=== PATIENT | female | born 1935 | race Caucasian/White ===

== ENCOUNTER 2018-07-21 10:44 | Emergency (ER) | payer MEDICAID, MEDICARE ==
[~2018-07-21] VITALS: Ht 157.5 cm; Wt 61.4 kg
[2018-07-21] MEDS ORDERED: PRAV40TA2 PO (11:09)
[2018-07-21] MEDS ORDERED: MULTCAP PO (11:09)
[2018-07-21] MEDS ORDERED: VITA200016 PO (11:09)
[2018-07-21] MEDS ORDERED: ALBU0.63 NEB (11:09)
[2018-07-21] MEDS ORDERED: CELE1CAP9 PO (11:09)
[2018-07-21] MEDS ORDERED: TRAM50TA2 PO (11:09)
[2018-07-21] MEDS ORDERED: VITA500C24 PO (11:11)
[2018-07-21] MEDS ORDERED: SYMB16INH INH (11:11)
[2018-07-21] MEDS ORDERED: CYCL5TAB PO (11:11)
[2018-07-21] MEDS ORDERED: PROAAER10 INH (11:12)
[2018-07-21] MEDS ORDERED: methylPREDNISolone INJ 125 MG/2 ML VIAL (J2930) IV ONE (11:15)
[2018-07-21] MEDS: IPRATROPIUM 0.5MG/ALBUTEROL 2.5MG INH SOL UD 3ML (DUONEB)(J7620) NEB PRN ×3 (11:21→12:05)
[2018-07-21 11:24] LABS: BASO % 0.4 % (0.0-1.0); EOS # 0.1 10^3/uL (0.0-0.50); EOS % 0.8 % (0.0-3.0); HEMATOCRIT 49.7 % (36.0-47.0); HEMOGLOBIN 16.5 g/dl (12.0-15.5); LYMPH # 2.5 10^3/uL (1.5-4.5); LYMPH % 23.4 % (24.0-44.0); MEAN CORPUSCULAR HEMOGLOBIN 30.3 pg (27.0-33.0); MEAN CORPUSCULAR HGB CONC 33.2 g/dl (32.0-36.5); MEAN CORPUSCULAR VOLUME 91.4 fl (80.0-96.0); MONO # 0.8 10^3/uL (0.0-0.8); MONO % 7.4 % (0.0-5.0); NEUTROPHILS # 7.2 10^3/uL (1.8-7.7); NEUTROPHILS % 67.7 % (36.0-66.0); PLATELET COUNT, AUTOMATED 318 10^3/uL (150-450); RED BLOOD COUNT 5.44 10^6/uL (4.00-5.40); WHITE BLOOD COUNT 10.7 10^3/uL (4.0-10.0)
[2018-07-21 11:29] LABS: VENOUS BASE EXCESS 4.8 (-2.0-2.0); VENOUS HCO3 31.2 MEQ/L (23.0-27.0); VENOUS O2 SATURATION 47.7 % (60.0-80.0); VENOUS PARTIAL PRESSURE CO2 51.6 mmHg (38.0-50.0); VENOUS PARTIAL PRESSURE O2 26.2 mmHg (30.0-50.0); VENOUS PH 7.399 UNITS (7.330-7.430); VENOUS STANDARD HCO3 27.2 MEQ/L; VENOUS TOTAL CO2 32.8 MEQ/L (24.0-28.0)
[2018-07-21 11:51] LABS: ALBUMIN 4.1 GM/DL (3.2-5.2); ALT/SGPT 21 U/L (12-78); BILIRUBIN,DIRECT 0.2 MG/DL (0.0-0.2); BILIRUBIN,TOTAL 0.4 MG/DL (0.2-1.0); BLOOD UREA NITROGEN 12 MG/DL (7-18); CALCIUM LEVEL 10.4 MG/DL (8.8-10.2); CARBON DIOXIDE LEVEL 31 MEQ/L (21-32); CHLORIDE LEVEL 101 MEQ/L (98-107); CREATININE FOR GFR 0.58 MG/DL (0.55-1.30); GLOMERULAR FILTRATION RATE > 60.0 (>32); GLUCOSE, FASTING 119 MG/DL (70-100); LIPASE 91 U/L (73-393); POTASSIUM SERUM 4.2 MEQ/L (3.5-5.1); SODIUM LEVEL 140 MEQ/L (136-145); TOTAL PROTEIN 7.7 GM/DL (6.4-8.2)
[2018-07-21 11:52] LABS: INFLUENZA A AMPLIFICATION NEGATIVE (NEGATIVE); INFLUENZA B AMPLIFICATION NEGATIVE (NEGATIVE)
[2018-07-21 11:54] LABS: CPK CREATINE PHOSPHOKINASE 91 U/L (26-192); MB/CK RELATIVE INDEX 3.85 (< OR =4); TROPONIN I < 0.02 NG/ML (< 0.10)
[2018-07-21 12:29] VITALS: O2SAT 89
--- NOTE | 2018-07-21 12:42 | REP ---
CHEST PA/LATERAL: 07/21/2018. CLINICAL HISTORY: Dyspnea, cough. FINDINGS: There were no prior studies available. Lungs are well inflated, and the CP angles sharply defined without effusion. There is no lateral pleural thickening, apical scarring, or pneumothorax. Some underlying fibrotic changes are noted. There is no dense consolidation with air bronchograms. The aorta is calcified at the arch, tortuous but without aneurysm. Degenerative changes in the spine without compression deformity. No cardiomegaly or edema. Bony thoracic spine without acute compression deformity. Bones appear demineralized. No free air under the diaphragm. IMPRESSION: 1. Some underlying fibrosis and COPD without cardiomegaly, edema, effusion, or definite acute infiltrate. No dense consolidation or effusion. 2. Tortuous ectatic aorta without aneurysm. 3. No compression deformity in the spine. Bones are demineralized. Electronically Signed by Preet Macias MD 07/21/2018 06:57 P
[2018-07-21] MEDS ORDERED: PRED20TA PO (13:01)
[2018-07-21 13:09] VITALS: BP 137/69
--- NOTE | 2018-07-21 16:42 | ECGEPIP ---
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
== END 2018-07-21 13:20 | disposition home or self-care (01) ==
LOC: M ED 10:44
DX: J44.1 Chronic obstructive pulmonary disease with (acute) exacerbation (principal); Z72.0 Tobacco use; Q25.46 Tortuous aortic arch; Z79.899 Other long term (current) drug therapy; Z88.2 Allergy status to sulfonamides; Z88.8 Allergy status to other drugs, medicaments and biological substances
CPT/HCPCS: 71046; 80048; 80076; 82550; 82553; 82803; 83690; 84484; 85025; 87502; 93005; 93041; 94640; 96374; 99284; J2930

== ENCOUNTER → 2018-10-18 | Outpatient (CLI) | payer MEDICARE, MEDICAID ==
[~2018-10-18] MED LIST: ALBU0.63 NEB; CELE1CAP9 PO; CYCL5TAB PO; MULTCAP PO; PRAV40TA2 PO; PRED20TA PO; PROAAER10 INH; SYMB16INH INH; TRAM50TA2 PO; VITA200016 PO; VITA500C24 PO
[2018-10-18 18:00] LABS: FREE THYROXINE INDEX 2.9 % (1.3-4.8); RHEUMATOID FACTOR QUANT 21.5 IU/ML (<15.0); THYROID STIMULATING HORMONE 2.37 uIU/ML (0.358-3.740); THYROXINE (T4) 9.1 UG/DL (4.5-12.0)
[2018-10-22 00:06] LABS: H PYLORI SERUM QUANT IGA <9.0 units (0.0-8.9); H PYLORI SERUM QUANT IGM <9.0 units (0.0-8.9); H PYLORI SERUM QUANT IgG ABY 5.98 (0.00-0.79); SSA SJOGRENS A <0.2 AI (0.0-0.9); SSB SJOGRENS B <0.2 AI (0.0-0.9)
== END ==
LOC: M SMT 15:59
PROVIDERS: ATTEND Internal Medicine Pulmonary Disease
DX: J47.9 Bronchiectasis, uncomplicated (principal)

== ENCOUNTER 2018-11-11 19:52 | Inpatient (IN) | payer MEDICAID, MEDICARE ==
[~2018-11-11] VITALS: Ht 157.5 cm; Wt 57.2 kg
[2018-11-11 20:09] LABS: BASO # 0.1 10^3/uL (0.0-0.2); BASO % 0.3 % (0.0-1.0); EOS # 0.5 10^3/uL (0.0-0.50); EOS % 2.5 % (0.0-3.0); HEMATOCRIT 52.5 % (36.0-47.0); HEMOGLOBIN 16.9 g/dl (12.0-15.5); LYMPH # 3.9 10^3/uL (1.5-4.5); LYMPH % 20.8 % (24.0-44.0); MEAN CORPUSCULAR HEMOGLOBIN 30.2 pg (27.0-33.0); MEAN CORPUSCULAR HGB CONC 32.2 g/dl (32.0-36.5); MEAN CORPUSCULAR VOLUME 93.9 fl (80.0-96.0); MONO # 1.9 10^3/uL (0.0-0.8); MONO % 10.2 % (0.0-5.0); NEUTROPHILS # 12.3 10^3/uL (1.8-7.7); NEUTROPHILS % 65.9 % (36.0-66.0); PLATELET COUNT, AUTOMATED 389 10^3/uL (150-450); RED BLOOD COUNT 5.59 10^6/uL (4.00-5.40); WHITE BLOOD COUNT 18.7 10^3/uL (4.0-10.0)
[2018-11-11 20:11] LABS: ABG BASE EXCESS 2.8 (-2.0-2.0); ABG HCO3 28.5 MEQ/L (22.0-26.0); ABG O2 SATURATION 99.9 % (95.0-99.0); ABG PARTIAL PRESSURE CO2 47.3 mmHg (35.0-45.0); ABG PARTIAL PRESSURE O2 385.6 mmHg (75.0-100.0); ABG pH (ARTERIAL) 7.398 UNITS (7.350-7.450)
[2018-11-11] MEDS ORDERED: MORPHINE 2 MG/ML 1ML SYRINGE (J2270) IV ONE (20:15)
[2018-11-11] MEDS ORDERED: dexameTHASONE 4 MG/ML 1ML VIAL (J1100) IV ONE (20:15)
[2018-11-11 20:24] LABS: INR 0.9; PROTHROMBIN TIME 12.2 SECONDS (12.1-14.4)
[2018-11-11 20:25] LABS: PARTIAL THROMBOPLASTIN TIME 30.5 SECONDS (25.4-37.6)
[2018-11-11] MEDS ORDERED: BUSP10TA PO ×3 (20:33→23:34)
[2018-11-11 20:44] LABS: BLOOD UREA NITROGEN 17 MG/DL (7-18); CALCIUM LEVEL 9.6 MG/DL (8.8-10.2); CARBON DIOXIDE LEVEL 34 MEQ/L (21-32); CHLORIDE LEVEL 98 MEQ/L (98-107); CK-MB VALUE MASS 6.6 NG/ML (<3.6); CPK CREATINE PHOSPHOKINASE 134 U/L (26-192); CREATININE FOR GFR 0.84 MG/DL (0.55-1.30); GLOMERULAR FILTRATION RATE > 60.0 (>32); GLUCOSE, FASTING 160 MG/DL (70-100); MB/CK RELATIVE INDEX 4.93 (< OR =4); NT-PRO BNP 124 PG/ML (<450); POTASSIUM SERUM 4.2 MEQ/L (3.5-5.1); SODIUM LEVEL 139 MEQ/L (136-145); TROPONIN I < 0.02 NG/ML (< 0.10)
[2018-11-11] MEDS ORDERED: IPRATROPIUM 0.5MG/ALBUTEROL 2.5MG INH SOL UD 3ML (DUONEB)(J7620) NEB ONE (21:00)
[2018-11-11] MEDS ORDERED: ISOVUE-370 76% 100ML VIAL (Q9967) As Ordered ONE (21:38)
[2018-11-11] MEDS ORDERED: LORazepam 2 MG/ML VIAL (J2060) IV STA (22:18)
[2018-11-11 22:51] LABS: ABG BASE EXCESS 5.6 (-2.0-2.0); ABG HCO3 30.2 MEQ/L (22.0-26.0); ABG O2 SATURATION 86.5 % (95.0-99.0); ABG PARTIAL PRESSURE CO2 43.7 mmHg (35.0-45.0); ABG PARTIAL PRESSURE O2 50.6 mmHg (75.0-100.0); ABG STANDARD HCO3 29.2 MEQ/L (22.0-26.0); ABG TOTAL CO2 31.6 MEQ/L (23.0-31.0); ABG pH (ARTERIAL) 7.458 UNITS (7.350-7.450)
[2018-11-11] MEDS ORDERED: SYMB16INH INH (23:34)
[2018-11-11] MEDS ORDERED: ALBU83IN INH (23:34)
[2018-11-11] MEDS ORDERED: ASCO100013 PO (23:34)
[2018-11-11] MEDS ORDERED: PROAAER10 INH (23:34)
[2018-11-11] MEDS ORDERED: D3 22000 PO (23:42)
[2018-11-11] MEDS ORDERED: TUMS500C PO (23:42)
[2018-11-11] MEDS ORDERED: AMLO2.5T3 PO (23:42)
[2018-11-11] MEDS ORDERED: VITA100018 PO (23:42)
[2018-11-11] MEDS ORDERED: RANI150T PO (23:42)
[2018-11-11] MEDS ORDERED: TRAM50TA2 PO ×2 (23:42)
[2018-11-11] MEDS ORDERED: LISI-1046 PO (23:42)
[2018-11-11] MEDS ORDERED: CALCTAB17 PO (23:42)
[2018-11-11] MEDS ORDERED: ACET20VL INH (23:46)
[2018-11-12] MEDS ORDERED: ACETAMINOPHEN TAB 650MG DOSE (2X325MG) PO PRN (02:30)
--- NOTE | 2018-11-12 02:43 | HPEPDOC ---
[facility] Medical History & Physical Date of Admission Nov 12, 2018 Date of Service: Nov 12, 2018 History and Physical CHIEF COMPLAINT: SOB HISTORY OF PRESENT ILLNESS: Patient 82-year-old female with past medical history of COPD, anxiety, chronic pain and osteoarthritis presents to ER with complaints of worsening shortness of breath. Patient reportedly has had worsening symptoms since May and lead her to develop anxiety attacks to worsen her breathing status. Stated that she desats down into the 80s home at night. Recently was on prednisone for bronchitis treatment. Upon ER arrival, patient was noted to be hypoxic with severe respiratory distress with sat at 84%. She also reports loss of appetite, nausea, hot flashes and multiple symptoms recently. Reports feeling better at this time and no other complaints. PAST MEDICAL HISTORY: Refer to [facility] PAST SURGICAL HISTORY: Hysterectomy Carpal tunnel surgery 3 SOCIAL HISTORY: Denies tobacco, alcohol or illicit drug use. FAMILY HISTORY: None reported ALLERGIES: Please see below. REVIEW OF SYSTEMS: 10 point review of system negative except as stated in HPI HOME MEDICATIONS: Please see below. PHYSICAL EXAMINATION: General: No acute distress, Alert Eyes: Normal sclera, EOMI, SACHIN HENT: Atraumatic, neck supple, moist mucous membranes Cardiovascular: Normal rate, normal rhythm. Pulmonary: Diffuse b/l wheezing. GI: Soft, nontender, nondistended Skin: Warm and dry Neuro: CN grossly intact. No focal deficits. Strengths equal b/l. Psych: oriented x 3 LABORATORY DATA: See below. IMAGING: CXR- Pending read. MICROBIOLOGY: Please see below. ASSESSMENT AND PLAN: 1. COPD exacerbation - with desaturations down to 80s. - ABG noted for metabolic alkalosis. - Will c/w nebs, steroids at this time. - O2 support as needed. May need to be assess for home O2 prior to discharge. - Anxiety may play a role in exacerbations. 2. Severe anxiety - Will likely need Psych evaluation, at least as outpatient. - On Buspar currently. C/w home med. 3. OA - Resume home meds. DVT ppx: Lovenox and SCD Code status: Full code Vital Signs Vital Signs Date Time Temp Pulse Resp B/P (MAP) Pulse Ox O2 Delivery O2 Flow Rate FiO2 11/12/18 02:15 87 126/65 (85) 97 Nasal Cannula 3.0 11/12/18 00:30 99.4 24 Laboratory Data Labs 24H Laboratory Tests 2 11/11/18 19:55: Immature Granulocyte % (Auto) 0.3, White Blood Count 18.7H, Red Blood Count 5.5 9H, Hemoglobin 16.9H, Hematocrit 52.5H, Mean Corpuscular Volume 93.9, Mean Corpuscular Hemoglobin 30.2, Mean Corpuscular Hemoglobin Concent 32.2, Red Cell Distribution Width 12.8, Platelet Count 389, Neutrophils (%) (Auto) 65.9, Lymphocytes (%) (Auto) 20.8L, Monocytes (%) (Auto) 10.2H, Eosinophils (%) (Auto) 2.5, Basophils (%) (Auto) 0.3, Neutrophils # (Auto) 12.3H, Lymphocytes # (Auto) 3.9, Monocytes # (Auto) 1.9H, Eosinophils # (Auto) 0.5, Basophils # (Auto) 0.1, Nucleated Red Blood Cells % (auto) 0.0, Prothrombin Time 12.2, Prothromb Time International Ratio 0.90, Activated Partial Thromboplast Time 30.5, Anion Gap 7L, Glomerular Filtration Rate > 60.0, Blood Urea Nitrogen 17, Creatinine 0.84, Sodium Level 139, Potassium Level 4.2, Chloride Level 98, Carbon Dioxide Level 34H, Calcium Level 9.6, Total Creatine Kinase 134, Creatine Kinase MB 6.6H, Creatine Kinase MB Relative Index 4.93H, Troponin I < 0.02, QP-Dyz-N-Type Natriuretic Peptide 124 11/11/18 20:05: Blood Gas Bicarbonate Standard 27.0H, Arterial Blood pH 7.398, Arterial Blood Partial Pressure CO2 47.3H, Arterial Blood Partial Pressure O2 385.6H, Arterial Blood Total CO2 30.0, Arterial Blood HCO3 28.5H, Arterial Blood Base Excess 2.8H, Arterial Blood Oxygen Saturation 99.9H 11/11/18 22:40: Blood Gas Bicarbonate Standard 29.2H, Arterial Blood pH 7.458H, Arterial Blood Partial Pressure CO2 43.7, Arterial Blood Partial Pressure O2 50.6L, Arterial Blood Total CO2 31.6H, Arterial Blood HCO3 30.2H, Arterial Blood Base Excess 5.6H, Arterial Blood Oxygen Saturation 86.5L CBC/BMP Laboratory Tests 11/11/18 19:55 Red Blood Count 5.59 H, Mean Corpuscular Volume 93.9, Mean Corpuscular Hemoglobin 30.2, Mean Corpuscular Hemoglobin Concent 32.2, Red Cell Distribution Width 12.8, Neutrophils (%) (Auto) 65.9, Lymphocytes (%) (Auto) 20.8 L, Monocytes (%) (Auto) 10.2 H, Eosinophils (%) (Auto) 2.5, Basophils (%) (Auto) 0.3, Neutrophils # (Auto) 12.3 H, Lymphocytes # (Auto) 3.9, Monocytes # (Auto) 1.9 H, Eosinophils # (Auto) 0.5, Basophils # (Auto) 0.1, Calcium Level 9.6, Total Creatine Kinase 134 Home Medications Scheduled Acetylcysteine (Acetylcysteine) 200 Mg/1 Ml Vial, 2 ML INH DAILY MIXES WITH ALBUTEROL IN THE MORNING Amlodipine Besylate (Amlodipine Besylate) 2.5 Mg Tablet, 2.5 MG PO DAILY Ascorbic Acid (Vitamin C) 1,000 Mg Tablet, 1,000 MG PO DAILY Budesonide/Formoterol (Symbicort 160-4.5 Mcg Inhaler) 6 Gm Hfa.aer.ad, 2 PUFF IN H BID Buspirone HCl (Buspirone HCl) 10 Mg Tablet, 20 MG PO DAILY Buspirone HCl (Buspirone HCl) 10 Mg Tablet, 10 MG PO BID AFTERNOON AND QHS Calcium/Magnesium/Zinc (Qhaqbfm-Btoztjdvr-Ibok Tablet) 1 Each Tablet, 1 TAB PO TID Cholecalciferol (Vitamin D3) (Vitamin D3) 2,000 Unit Tablet, 2,000 UNIT PO DAILY Cyanocobalamin (Vitamin B-12) (Vitamin B-12) 1,000 Mcg Tablet, 1,000 MCG PO DAILY Lisinopril (Lisinopril) 2.5 Mg Tablet, 2.5 MG PO DAILY Pravastatin Sodium (Pravastatin Sodium) 40 Mg Tab, 40 MG PO QPM AFTER DINNER Ranitidine HCl (Ranitidine HCl) 150 Mg Tablet, 1 TAB PO BID Tramadol HCl (Tramadol HCl) 50 Mg Tablet, 100 MG PO DAILY Scheduled PRN Albuterol Sulf (Albuterol Sulfate) 2.5 Mg/3 Ml Vial.neb, 2.5 MG INH Q6H PRN for SHORTNESS OF BREATH Albuterol Sulfate (Proair Hfa) 8.5 Gm Hfa.aer.ad, 2 PUFF INH Q4H PRN for SHOR TNESS OF BREATH Calcium Carbonate (Tums) 200 Mg Tab.chew, 1,500 MG PO QID PRN for HEARTBURN/INDIGESTION Tramadol HCl (Tramadol HCl) 50 Mg Tablet, 50 MG PO BID PRN for PAIN Allergies Coded Allergies: Sulfa (Sulfonamide Antibiotics) (Verified Allergy, Unknown, 11/11/18) aspirin (Verified Allergy, Unknown, 11/11/18) A-FIB/CHADSVASC A-FIB History Current/History of A-Fib/PAF?: No VITOR ZUNIGA MD Nov 12, 2018 02:43
[2018-11-12] MEDS ORDERED: IPRATROPIUM 0.5MG/ALBUTEROL 2.5MG INH SOL UD 3ML (DUONEB)(J7620) NEB PRN (02:45)
[2018-11-12] MEDS ORDERED: NS 1,000 ML IV SCH (02:45)
[2018-11-12] MEDS ORDERED: CALCIUM CARBONATE 500 MG CHEW U/D PO PRN (02:45)
[2018-11-12] MEDS: traMADol 50 MG TAB PO PRN ×2 (03:08→18:42)
[2018-11-12 04:00] VITALS: BP 155/80
[2018-11-12] MEDS ORDERED: traMADol 50 MG TAB PO ONE (04:00)
[2018-11-12 05:53] LABS: HEMOGLOBIN 15.6 g/dl (12.0-15.5); MEAN CORPUSCULAR HEMOGLOBIN 29.5 pg (27.0-33.0); MEAN CORPUSCULAR HGB CONC 33.2 g/dl (32.0-36.5); PLATELET COUNT, AUTOMATED 343 10^3/uL (150-450); RED BLOOD COUNT 5.28 10^6/uL (4.00-5.40); WHITE BLOOD COUNT 7.9 10^3/uL (4.0-10.0)
[2018-11-12] MEDS ORDERED: AZITHROMYCIN INJ 500 MG, VIAL MATE ADAPTER 1 EACH in D5W 250 ML IV SCH (06:00)
[2018-11-12 06:06] LABS: BLOOD UREA NITROGEN 15 MG/DL (7-18); CALCIUM LEVEL 9.1 MG/DL (8.8-10.2); CARBON DIOXIDE LEVEL 31 MEQ/L (21-32); CHLORIDE LEVEL 101 MEQ/L (98-107); CREATININE FOR GFR 0.65 MG/DL (0.55-1.30); GLOMERULAR FILTRATION RATE > 60.0 (>32); GLUCOSE, FASTING 151 MG/DL (70-100); POTASSIUM SERUM 4.4 MEQ/L (3.5-5.1); SODIUM LEVEL 136 MEQ/L (136-145)
[2018-11-12] MEDS: SYMBICORT 160/4.5MCG INHALER 6GM INH SCH ×2 (07:19→20:02)
[2018-11-12] MEDS: IPRATROPIUM 0.5MG/ALBUTEROL 2.5MG INH SOL UD 3ML (DUONEB)(J7620) NEB SCH ×3 (07:20→20:00)
[2018-11-12 08:00] VITALS: BP 131/61
--- NOTE | 2018-11-12 08:16 | ECGEPIP ---
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
--- NOTE | 2018-11-12 08:41 | REP ---
PORTABLE CHEST: Single AP portable view of the chest is performed and compared to prior study of 07/21/2018. There is stable mild fibrotic change in each lung base with no evidence of acute infiltrate. Heart does not appear to be significantly enlarged. There is calcification and tortuosity of the thoracic aorta. The mediastinal silhouette is unchanged. IMPRESSION: Stable chronic findings without evidence of acute infiltrate. Electronically Signed by Yunier Yousif MD 11/12/2018 12:44 P
[2018-11-12] MEDS: CYANOCOBALAMIN 500 MCG TAB PO SCH (08:58)
[2018-11-12] MEDS: ESCITALOPRAM OXALATE 10 MG TAB (LEXAPRO) PO SCH (08:58)
[2018-11-12] MEDS: hydrOXYzine 25 MG TAB PO PRN ×2 (08:59→14:58)
[2018-11-12] MEDS: LISINOPRIL *2.5 MG* TAB PO SCH (08:59)
[2018-11-12] MEDS: busPIRone 10 MG TAB PO SCH ×2 (08:59→21:38)
[2018-11-12] MEDS: FAMOTIDINE 20 MG TAB PO SCH ×2 (08:59→21:38)
[2018-11-12] MEDS: ENOXAPARIN 40 MG/0.4 ML SYRINGE (J1650) SC SCH (09:00)
[2018-11-12] MEDS: methylPREDNISolone INJ 40 MG/1 ML VIAL (J2920) IV SCH ×2 (09:00→16:40)
[2018-11-12] MEDS: DOXYCYCLINE HYCLATE 100 MG in D5W MINI-BAG PLUS 100 ML IV SCH ×2 (09:30→21:39)
--- NOTE | 2018-11-12 10:20 | IPNPDOC ---
Text Note Date of Service The patient was seen on 11/12/18. NOTE Subjective: Kinga is seen on morning rounds, she is sitting on the edge of her bed, she is rather anxious, complaining of chest pain worse with breathing, apparently this has been present for many months and her daughter who is at bedside states that she often gets this way when she gets anxious. She states it resolves when she is not anxious. The patient states she is SOB but she says it is because she is anxious right now, she denies cough, heart palpitations or abdominal discomfort or n/v. ROS: 12 point ROS negative except for above findings PHYSICAL EXAMINATION: General: She is in distress from her anxiety, she is on the side of her bed, she is very fidgety, she states she has chest pain that is worsened with breathing HEENT: Atraumatic, neck supple, moist mucous membranes, EOMI, no JVD Cardiovascular: normal s1 and s2., no murmurs, rubs or gallops appreciated Pulmonary: scattered wheezing throughout, no rales or rhonchi appreciated Abdomen: soft, nabsx4, nontender to palpation, no rebound rigidity or guarding, no hepatosplenomegaly or masses appreciated Skin: Warm and dry Neuro: No focal deficits. Psych: oriented x 3 but very anxious LABORATORY DATA: See below. MICROBIOLOGY: Please see below. ASSESSMENT AND PLAN: 1. COPD exacerbation - Has been about 93% on 4 L NC O2, - Will start Doxycycline; DC Azithromycin (re: possible prolongation of QTc) - c/w solumedrol 40 q8h for now will wean tomorrow - c/w Duonebs 2. Severe anxiety -she is anxious again on physical examination today, she can't tell me why, she is just anxious -will schedule her escitalopram beginning today -hydroxyzine to help w this, avoid Benzo's in light of respiratory complaints - Will likely need Psych evaluation, at least as outpatient. 3. OA - Resume home medication 4. Chest pain - likely related to anxiety, less likely 2/2 cardiac etiology - EKG reviewed in chart, no concerning signs for active or impending ischemia, no concerning ST-T wave changes - If it does not improve after anxiety has resolved, we can order troponin and repeat EKG, daughter states this is chronic for her and always resolves when anxiety abates 5. GERD - Will try GI cocktail x 1 - Tums and Pepcid 6. DLP - c/w pravastatin 7. HTN - c/w amlodipine and lisinopril DVT ppx: - c/w Lovenox and SCD VS,Fishbone, I+O VS, Fishbone, I+O Laboratory Tests 11/11/18 19:55 Red Blood Count 5.59 H, Mean Corpuscular Volume 93.9, Mean Corpuscular Hemoglobin 30.2, Mean Corpuscular Hemoglobin Concent 32.2, Red Cell Distribution Width 12.8, Neutrophils (%) (Auto) 65.9, Lymphocytes (%) (Auto) 20.8 L, Monocytes (%) (Auto) 10.2 H, Eosinophils (%) (Auto) 2.5, Basophils (%) (Auto) 0.3, Neutrophils # (Auto) 12.3 H, Lymphocytes # (Auto) 3.9, Monocytes # (Auto) 1.9 H, Eosinophils # (Auto) 0.5, Basophils # (Auto) 0.1, Calcium Level 9.6, Total Creatine Kinase 134 11/12/18 05:30 Red Blood Count 5.28, Mean Corpuscular Volume 89.0, Mean Corpuscular Hemoglobin 29.5, Mean Corpuscular Hemoglobin Concent 33.2, Red Cell Distribution Width 12.8, Calcium Level 9.1 Vital Signs Date Time Temp Pulse Resp B/P (MAP) Pulse Ox O2 Delivery O2 Flow Rate FiO2 11/12/18 08:58 131/61 11/12/18 08:00 97.8 82 20 93 3.0 11/12/18 03:57 Nasal Cannula I&O- Last 24 Hours up to 6 AM0 11/12/18 06:00 Intake Total 300 ml Balance 300 ml GME ATTESTATION GME ATTESTATION My faculty preceptor for this patient encounter was physically present during the encounter and was fully available. All aspects of the patient interview, examination, medical decision making process, and medical care plan development were reviewed and approved by the faculty preceptor. The faculty preceptor is aware and concurs with the plan as stated in the body of this note and will attest to such by his/her cosignature. ATTENDING NOTE I, Letha Retana, have both independently examined this patient as well as reviewed the documentation. I have discussed in detail with the resident the findings and plan of treatment as documented by the resident. I agree with their findings and treatment plan. I will continue to follow the patient and offer further guidance to the patients care as necessary during this hospital stay. FER HARRELL DO Nov 12, 2018 10:20 LETHA RETANA MD Nov 12, 2018 15:22
[2018-11-12 12:00] VITALS: BP 125/58
[2018-11-12] MEDS ORDERED: GI COCKTAIL 50ML BTL(HYOSCYAMINE/MAALOX/LIDOCAINE VISCOUS)(1:3:1) PO ONE (15:00)
[2018-11-12 15:20] VITALS: BP 131/71
[2018-11-12 18:00] VITALS: BP 111/56
[2018-11-12] MEDS ORDERED: PRAVASTATIN 20 MG TAB PO SCH (21:00)
[2018-11-12] MEDS: guaiFENesin ER 600 MG TAB PO SCH (21:38)
[2018-11-12 22:00] VITALS: BP 113/59
[2018-11-13] MEDS: methylPREDNISolone INJ 40 MG/1 ML VIAL (J2920) IV SCH ×2 (00:14→08:22)
[2018-11-13] MEDS: IPRATROPIUM 0.5MG/ALBUTEROL 2.5MG INH SOL UD 3ML (DUONEB)(J7620) NEB SCH ×3 (02:00→14:08)
[2018-11-13 06:00] VITALS: BP 131/58
[2018-11-13] MEDS: SYMBICORT 160/4.5MCG INHALER 6GM INH SCH (07:46)
[2018-11-13 08:04] LABS: BASO % 0.1 % (0.0-1.0); HEMATOCRIT 49.5 % (36.0-47.0); HEMOGLOBIN 16.2 g/dl (12.0-15.5); LYMPH # 1.9 10^3/uL (1.5-4.5); LYMPH % 10.5 % (24.0-44.0); MEAN CORPUSCULAR HEMOGLOBIN 29.7 pg (27.0-33.0); MEAN CORPUSCULAR HGB CONC 32.7 g/dl (32.0-36.5); MEAN CORPUSCULAR VOLUME 90.7 fl (80.0-96.0); MONO # 1.5 10^3/uL (0.0-0.8); MONO % 8.3 % (0.0-5.0); NEUTROPHILS # 14.8 10^3/uL (1.8-7.7); NEUTROPHILS % 80.7 % (36.0-66.0); PLATELET COUNT, AUTOMATED 420 10^3/uL (150-450); RED BLOOD COUNT 5.46 10^6/uL (4.00-5.40); WHITE BLOOD COUNT 18.3 10^3/uL (4.0-10.0)
[2018-11-13] MEDS: hydrOXYzine 25 MG TAB PO PRN (08:19)
[2018-11-13] MEDS: DOXYCYCLINE HYCLATE 100 MG in D5W MINI-BAG PLUS 100 ML IV SCH (08:19)
[2018-11-13] MEDS: FAMOTIDINE 20 MG TAB PO SCH (08:19)
[2018-11-13] MEDS: CYANOCOBALAMIN 500 MCG TAB PO SCH (08:19)
[2018-11-13] MEDS: guaiFENesin ER 600 MG TAB PO SCH (08:19)
[2018-11-13] MEDS: busPIRone 10 MG TAB PO SCH (08:19)
[2018-11-13] MEDS: ESCITALOPRAM OXALATE 10 MG TAB (LEXAPRO) PO SCH (08:19)
[2018-11-13] MEDS: LISINOPRIL *2.5 MG* TAB PO SCH (08:21)
[2018-11-13 08:22] VITALS: BP 116/66
[2018-11-13] MEDS: ENOXAPARIN 40 MG/0.4 ML SYRINGE (J1650) SC SCH (08:22)
[2018-11-13] MEDS: traMADol 50 MG TAB PO PRN (08:23)
[2018-11-13 08:27] LABS: CREATININE FOR GFR 1.1 MG/DL (0.55-1.30); GLOMERULAR FILTRATION RATE 50.7 (>32); MAGNESIUM LEVEL 2.5 MG/DL (1.8-2.4); POTASSIUM SERUM 4.6 MEQ/L (3.5-5.1)
[2018-11-13] MEDS ORDERED: predniSONE 20 MG TAB PO SCH (09:00)
[2018-11-13 10:00] VITALS: BP 141/67
[2018-11-13] MEDS ORDERED: HYDR-3363 PO (10:42)
[2018-11-13] MEDS ORDERED: PRED10TA2 PO (10:42)
--- NOTE | 2018-11-13 12:22 | DS.PDOC ---
Discharge Summary General Date of Admission Nov 12, 2018 at 02:29 Date of Discharge 11.13.18 Discharge Summary PROCEDURES PERFORMED DURING STAY: None ADMITTING DIAGNOSES / DISCHARGE DIAGNOSES: 1. COPD exacerbation 2. Severe anxiety 3. OA 4. Chest pain - likely related to anxiety, less likely 2/2 cardiac etiology 5. GERD 6. DLP 7. HTN COMPLICATIONS/CHIEF COMPLAINT: Shortness of breath HISTORY OF PRESENT ILLNESS: Patient 82-year-old female with past medical history of COPD, anxiety, chronic pain and osteoarthritis presents to ER with complaints of worsening shortness of breath. Patient reportedly has had worsening symptoms since May and lead her to develop anxiety attacks to worsen her breathing status. Stated that she desats down into the 80s home at night. Recently was on prednisone for bronchitis treatment. Upon ER arrival, patient was noted to be hypoxic with severe respiratory distress with sat at 84%. She also reports loss of appetite, nausea, hot flashes and multiple symptoms recently. Reports feeling better at this time and no other complaints. HOSPITAL COURSE: During the course of the patients hospital stay, she was treated with IV steroids for her COPD exacerbation. She had improvement in SOB and and was transitioned to Prednisone with a tapering course as an outpatient. She was continue with Doxycycline as an outpatient Patient did have significant anxiety and was given hydroxyzine inpatient. She was prescribed this as an outpatient with instructions to use as needed q8h. She has been advised to follow up with energy director and PCP within 5-7 days of discharge. DISCHARGE MEDICATIONS: Please see below. ALLERGIES: Please see below. PHYSICAL EXAMINATION ON DISCHARGE: PHYSICAL EXAMINATION: General: She is sitting on her bed, speaking with her daughter who is at bedside, SOB has resolved, some production of yellowish phlegm with coughing, NAD, speaking in full sentences HEENT: Atraumatic, neck supple, moist mucous membranes, EOMI, no JVD Cardiovascular: normal s1 and s2., no murmurs, rubs or gallops appreciated Pulmonary: no rhonchi or rales, mild wheezing still noted at b/l lung ortiz - but improved Abdomen: soft, nabsx4, nontender to palpation, no rebound rigidity or guarding, no hepatosplenomegaly or masses appreciated Skin: Warm and dry Neuro: No focal deficits. Psych: oriented x 3 but very anxious LABORATORY DATA: Please see below. IMAGING: CXR 11.11.18 IMPRESSION: Stable chronic findings without evidence of acute infiltrate. PROGNOSIS: stable ACTIVITY: As tolerated DIET: as tolerated DISCHARGE PLAN: - Should see pcp and energy director within 5-7 days of dc. - Remain compliant with treatment plan and medications - Complete prednisone taper, hydroxyzine sent for anxiety - Return to the ER if you experience any problems DISPOSITION: Home DISCHARGE CONDITION: Stable TIME SPENT ON DISCHARGE: Greater than 30 minutes. Vital Signs/I&Os Vital Signs Date Time Temp Pulse Resp B/P (MAP) Pulse Ox O2 Delivery O2 Flow Rate FiO2 11/13/18 10:00 98.2 88 18 141/67 (91) 94 11/12/18 12:00 3.0 11/12/18 03:57 Nasal Cannula I&O- Last 24 Hours up to 6 AM 11/13/18 06:00 Intake Total 2225 ml Output Total 200 ml Balance 2025 ml Laboratory Data Labs 24H Laboratory Tests 2 11/13/18 07:52: Immature Granulocyte % (Auto) 0.4, White Blood Count 18.3H, Red Blood Count 5.46H, Hemoglobin 16.2H, Hematocrit 49.5H, Mean Corpuscular Volume 90.7, Mean Corpuscular Hemoglobin 29.7, Mean Corpuscular Hemoglobin Concent 32.7, Red Cell Distribution Width 13.2, Platelet Count 420, Neutrophils (%) (Auto) 80.7H, Lymphocytes (%) (Auto) 10.5L, Monocytes (%) (Auto) 8.3H, Eosinophils (%) (Auto) 0.0, Basophils (%) (Auto) 0.1, Neutrophils # (Auto) 14.8H, Lymphocytes # (Auto) 1.9, Monocytes # (Auto) 1.5H, Eosinophils # (Auto) 0.0, Basophils # (Auto) 0.0, Nucleated Red Blood Cells % (auto) 0.0, Anion Gap 8, Glomerular Filtration Rate 50.7, Blood Urea Nitrogen 20H, Creatinine 1.10#, Sodium Level 140, Potassium Level 4.6, Chloride Level 101, Carbon Dioxide Level 31, Calcium Level 10.0, Magnesium Level 2.5H CBC/BMP Laboratory Tests 11/13/18 07:52 Red Blood Count 5.46 H, Mean Corpuscular Volume 90.7, Mean Corpuscular Hemoglobin 29.7, Mean Corpuscular Hemoglobin Concent 32.7, Red Cell Distribution Width 13.2, Neutrophils (%) (Auto) 80.7 H, Lymphocytes (%) (Auto) 10.5 L, Monocytes (%) (Auto) 8.3 H, Eosinophils (%) (Auto) 0.0, Basophils (%) (Auto) 0.1, Neutrophils # (Auto) 14.8 H, Lymphocytes # (Auto) 1.9, Monocytes # (Auto) 1.5 H, Eosinophils # (Auto) 0.0, Basophils # (Auto) 0.0, Calcium Level 10.0 Discharge Medications Scheduled Acetylcysteine (Acetylcysteine) 200 Mg/1 Ml Vial, 2 ML INH DAILY, (Reported) MIXES WITH ALBUTEROL IN THE MORNING Amlodipine Besylate (Amlodipine Besylate) 2.5 Mg Tablet, 2.5 MG PO DAILY, (Reported) Ascorbic Acid (Vitamin C) 1,000 Mg Tablet, 1,000 MG PO DAILY, (Reported) Budesonide/Formoterol (Symbicort 160-4.5 Mcg Inhaler) 6 Gm Hfa.aer.ad, 2 PUFF INH BID, (Reported) Buspirone HCl (Buspirone HCl) 10 Mg Tablet, 10 MG PO BID, (Reported) AFTERNOON AND QHS Buspirone HCl (Buspirone HCl) 10 Mg Tablet, 10 MG PO TID Calcium/Magnesium/Zinc (Zjxjpbv-Hvuxrfoai-Ozzi Tablet) 1 Each Tablet, 1 TAB PO TID, (Reported) Cholecalciferol (Vitamin D3) (Vitamin D3) 2,000 Unit Tablet, 2,000 UNIT PO DAILY, (Reported) Cyanocobalamin (Vitamin B-12) (Vitamin B-12) 1,000 Mcg Tablet, 1,000 MCG PO DAILY, (Reported) Lisinopril (Lisinopril) 2.5 Mg Tablet, 2.5 MG PO DAILY, (Reported) Omeprazole (Omeprazole) 40 Mg Capsule.dr, 1 CAP PO DAILY Pravastatin Sodium (Pravastatin Sodium) 40 Mg Tab, 40 MG PO QPM, (Reported) AFTER DINNER Prednisone (Prednisone) 10 Mg Tablet, 10 MG PO TAPER Take 6 tabs x 3d, 4 tabs daily x 3d, then 3 tabs daily x 3d, then 2 tabs daily x 3 days, then 1 tab daily x 3d and stop Ranitidine HCl (Ranitidine HCl) 150 Mg Tablet, 1 TAB PO BID, (Reported) Scheduled PRN Albuterol Sulf (Albuterol Sulfate) 2.5 Mg/3 Ml Vial.neb, 2.5 MG INH Q6H PRN for SHORTNESS OF BREATH, (Reported) Albuterol Sulfate (Proair Hfa) 8.5 Gm Hfa.aer.ad, 2 PUFF INH Q4H PRN for SHORTNESS OF BREATH, (Reported) Calcium Carbonate (Tums) 200 Mg Tab.chew, 1,500 MG PO QID PRN for HEARTBURN/INDIGESTION, (Reported) Hydroxyzine HCl (Hydroxyzine HCl) 25 Mg Tablet, 25 MG PO TID PRN for ANGINA Tramadol HCl (Tramadol HCl) 50 Mg Tablet, 50 MG PO BID PRN for PAIN, (Reported) Allergies Coded Allergies: Sulfa (Sulfonamide Antibiotics) (Verified Allergy, Unknown, 11/11/18) aspirin (Verified Allergy, Unknown, 11/11/18) GME ATTESTATION GME ATTESTATION My faculty preceptor for this patient encounter was physically present during the encounter and was fully available. All aspects of the patient interview, examination, medical decision making process, and medical care plan development were reviewed and approved by the faculty preceptor. The faculty preceptor is aware and concurs with the plan as stated in the body of this note and will a ttest to such by his/her cosignature. ATTENDING NOTE I, Letha Retana, have both independently examined this patient as well as reviewed the documentation. I have discussed in detail with the resident the findings and plan of treatment as documented by the resident. I agree with their findings and treatment plan. I will continue to follow the patient and offer further guidance to the patients care as necessary during this hospital stay. Time spent on discharge 35 minutes FER HARRELL DO Nov 13, 2018 12:22 LETHA RETANA MD Nov 13, 2018 15:44
[2018-11-13] MEDS ORDERED: OMEP40CA2 PO (13:05)
[2018-11-13] MEDS ORDERED: BUSP10TA PO (13:05)
[2018-11-13 14:00] VITALS: BP 118/54
[2018-11-14] MEDS ORDERED: MUCI60TA7 PO (15:19)
[2018-11-14] MEDS ORDERED: SPIR12.9 PO (15:19)
== END 2018-11-13 14:58 | disposition home or self-care (01) | DRG 191 ==
LOC: M ED 19:52 → M ED INP 11-12 02:29 → M PCU 11-12 04:09 → M MSPAV 11-12 15:14
PROVIDERS: ADMIT Student in an Organized Health Care Education/Training Program; ATTEND Internal Medicine
DX: J44.1 Chronic obstructive pulmonary disease with (acute) exacerbation (principal); E87.3 Alkalosis; F41.9 Anxiety disorder, unspecified; G89.29 Other chronic pain; M19.90 Unspecified osteoarthritis, unspecified site; K21.9 Gastro-esophageal reflux disease without esophagitis; I10 Essential (primary) hypertension; E78.5 Hyperlipidemia, unspecified; R09.02 Hypoxemia; Z79.891 Long term (current) use of opiate analgesic; Z79.899 Other long term (current) drug therapy; Z88.2 Allergy status to sulfonamides; Z88.6 Allergy status to analgesic agent

== ENCOUNTER 2018-11-14 15:02 | Emergency (ER) | payer MEDICARE ==
[~2018-11-14] VITALS: Ht 157.5 cm; Wt 56.6 kg
[~2018-11-14 15:02] MED LIST changes: +ACET20VL INH; +ALBU83IN INH; +AMLO2.5T3 PO; +ASCO100013 PO; +BUSP10TA PO; +CALCTAB17 PO; +D3 22000 PO; +HYDR-3363 PO; +LISI-1046 PO; +OMEP40CA2 PO; +PRED10TA2 PO; +RANI150T PO; +TUMS500C PO; +VITA100018 PO
[2018-11-14] MEDS ORDERED: MUCI60TA7 PO (15:19)
[2018-11-14] MEDS ORDERED: SPIR12.9 PO (15:19)
[2018-11-14 18:19] VITALS: BP 144/86
== END 2018-11-14 18:50 | disposition home or self-care (01) ==
LOC: M ED 15:02
DX: F41.9 Anxiety disorder, unspecified (principal); J44.9 Chronic obstructive pulmonary disease, unspecified; M19.90 Unspecified osteoarthritis, unspecified site; Z79.899 Other long term (current) drug therapy; Z88.1 Allergy status to other antibiotic agents; Z88.2 Allergy status to sulfonamides; Z88.8 Allergy status to other drugs, medicaments and biological substances

== ENCOUNTER → 2018-11-22 | Outpatient (CLI) | payer MEDICARE ==
[~2018-11-22] MED LIST changes: +MUCI60TA7 PO; +SPIR12.9 PO
[2018-11-22 17:53] LABS: C REACTIVE PROTEIN QUANTITATIV < 0.30 MG/DL (0.00-0.30); COMPLEMENT C3 118 MG/DL (90-180); COMPLEMENT C4 24 MG/DL (10-40)
[2018-11-26 00:06] LABS: ANA (HEP2) Negative (.); CYCLIC CITRULLINATED PEPTIDE < 1 units (0-19)
== END ==
LOC: M SMT 15:10
PROVIDERS: ATTEND Internal Medicine Pulmonary Disease
DX: J47.9 Bronchiectasis, uncomplicated (principal)

== ENCOUNTER → 2019-07-16 | Outpatient (CLI) | payer MEDICARE, MEDICAID ==
[~2019-07-16] MED LIST changes: -OMEP40CA2 PO; +OMEP40CA97 PO
[2019-07-16 17:45] LABS: C REACTIVE PROTEIN QUANTITATIV 0.42 MG/DL (0.00-0.30); RHEUMATOID FACTOR QUANT 19.5 IU/ML (<15.0); TOTAL PROTEIN 7.3 GM/DL (6.4-8.2)
--- NOTE | 2019-07-17 07:16 | REP ---
BILATERAL HAND SERIES: Four views of bilateral hands performed. On the left, there is no fracture or dislocation. There is moderate narrowing with subchondral sclerosis and cystic change as well as mild spurring of the joint between the trapezium and base of first metacarpal. There is mild diffuse narrowing of the proximal interphalangeal joints with mild subchondral sclerosis. There is moderate narrowing of the 1st, 4th, and 5th distal interphalangeal joints with mild spurring. There is severe narrowing and erosive change at the 2nd and 3rd distal interphalangeal joints with mild spurring. On the right, there is evidence of metallic internal fixation of the distal radius. The distal ulna has a chronically fragmented appearance with two smoothly marginated ossific fragments at the distal end of the ulna, both slightly less than 1 cm in diameter. There is mild narrowing and subchondral sclerosis at the trapezium and base of 1st metacarpal. There is mild narrowing of the 1st metacarpophalangeal joint. There is moderate narrowing of the 1st interphalangeal joint with a spur at the base of the 1st distal phalanx. There is mild diffuse narrowing of the 2nd through 5th proximal interphalangeal joints with moderate spurring at the base of the 2nd distal phalanx and a very small spur at the base of the 5th distal phalanx. IMPRESSION: Degenerative changes as above. Electronically Signed by Yunier Yousif MD 07/17/2019 01:02 P
[2019-07-17 12:13] LABS: ALBUMIN 4.29 GM/DL (3.29-5.55); ALBUMIN % 58.7 % (55.8-66.1); ALPHA-1-GLOBULIN % 4.3 % (2.9-4.9); ALPHA-1-GLOBULINS 0.31 GM/DL (0.17-0.41); ALPHA-2-GLOBULINS 0.93 GM/DL (0.42-0.99); ALPHA-2-GLOBULINS % 12.8 % (7.1-11.8); BETA-1-GLOBULINS 0.43 GM/DL (0.28-0.60); BETA-1-GLOBULINS % 5.9 % (4.7-7.2); BETA-2-GLOBULINS 0.41 GM/DL (0.19-0.55); BETA-2-GLOBULINS % 5.6 % (3.2-6.5); GAMMA GLOBULIN % 12.7 % (11.1-18.8); GAMMA GLOBULINS 0.93 GM/DL (0.65-1.58)
== END ==
LOC: M LAB 16:26
PROVIDERS: ATTEND Internal Medicine
DX: R76.8 Other specified abnormal immunological findings in serum (principal); M19.041 Primary osteoarthritis, right hand; M19.042 Primary osteoarthritis, left hand
CPT/HCPCS: 36415; 73130; 84165; 85652; 86140; 86431; G0463

== ENCOUNTER → 2022-10-27 | Outpatient (REF) | payer MEDICARE, MEDICAID ==
[~2022-10-27] MED LIST changes: +ALBU2.5V10 INH; -ALBU83IN INH; -LISI-1046 PO; +LISI2.5T9 PO; +OMEP40CA4 PO; -OMEP40CA97 PO
== END ==
LOC: M LAB REF 16:49
PROVIDERS: ATTEND Internal Medicine Critical Care Medicine
DX: J47.9 Bronchiectasis, uncomplicated (principal)